=== PATIENT | female | born 1935 | race Hispanic/Latino ===

== ENCOUNTER 2017-08-10 15:31 | Inpatient (IN) | payer MEDICARE, OTHER ==
[~2017-08-10] VITALS: Ht 144.8 cm; Wt 59.4 kg
[~2017-08-10 15:31] MED LIST: AMLODIPINE BESYL5 MG PO; DILTIAZEM 24HR120 M1 PO; DIOVAN HCT 1601 EACH PO; DIOVAN160 MG PO; FLAGYL500 MG PO; MECLIZINE HCL25 MG PO; SIMVASTATIN40 MG PO; TOPROL XL25 MG PO; XARELTO20 MG PO
[2017-08-10 16:22] LABS: BASOPHILS % 0.3 % (0.0-1.0); EOSINOPHILS # (AUTO) 0.1 (0.0-0.4); EOSINOPHILS % 0.8 % (0.0-6.0); HEMATOCRIT 38.3 % (34.2-44.1); HEMOGLOBIN 13.4 g/dL (12.0-16.0); LYMPHOCYTES # (AUTO) 1.3 (1.0-3.2); LYMPHOCYTES % 21.4 % (18.0-39.1); MEAN CORPUSCULAR HEMOGLOBIN 31.5 pg (28-32); MEAN CORPUSCULAR VOLUME 90.1 fL (81-99); MONOCYTES # (AUTO) 0.7 (0.2-0.8); MONOCYTES % 11.5 % (4.4-11.3); NEUTROPHILS # (AUTO) 4.1 (2.1-6.9); NEUTROPHILS % 65.7 % (38.7-80.0); PLATELET COUNT 225 x10e3/uL (140-360); RED BLOOD COUNT 4.25 x10e6/uL (3.6-5.1); RED CELL DISTRIBUTION WIDTH 11.9 % (11.7-14.4)
[2017-08-10 16:43] LABS: ALBUMIN 3.8 g/dL (3.5-5.0); ANION GAP 16.9 mmol/L (8-16); CALCIUM 10.1 mg/dL (8.4-10.2); CREATININE, SERUM 1.3 mg/dL (0.57-1.11); POTASSIUM 3.9 mmol/L (3.5-5.1)
--- NOTE | 2017-08-10 17:04 | Diagnostic Imaging Report ---
PROCEDURE: A single AP view of the chest. COMPARISON: Chest x-ray 09/25/2013. INDICATIONS: CHEST PAIN WHEN SWALLOWING FINDINGS: Lines/tubes: None. Lungs: The lungs are well inflated and clear. There is no evidence of pneumonia or pulmonary edema. Pleura: There is no pleural effusion or pneumothorax. Heart and mediastinum: Mild cardiomegaly. Atherosclerotic calcifications in the aorta. Bones: No acute bony abnormality. IMPRESSION: 1. Mild cardiomegaly. 2. No acute cardiopulmonary disease. Dictated by: Peter Rojas M.D. on 08/10/2017 at 17:04 Electronically approved by: Peter Rojas M.D. on 08/10/2017 at 17:04
[2017-08-10 17:33] LABS: CLARITY,URINE SL CLOUDY (CLEAR); COLOR,URINE YELLOW (YELLOW); LEUKOCYTE ESTERASE ,URINE NEGATIVE (NEGATIVE); NITRITE,URINE NEGATIVE (NEGATIVE); PROTEIN,URINE DIPSTICK 1+ (NEGATIVE)
[2017-08-10 17:34] LABS: BILIRUBIN,URINE 1+ (NEGATIVE); KETONES,URINE TRACE (NEGATIVE); URINE UROBILINOGEN 1 mg/dL (0.2 - 1)
[2017-08-10 17:45] LABS: BACTERIA,URINE MODERATE /HPF; EPITHELIAL CELLS,URINE RARE /LPF; WBC,URINE (MAN) 0-5 /HPF (0-5)
[2017-08-10] MEDS ORDERED: ONDANSETRON HCL INJ 2 MG/ML VIAL IV PRN (18:45)
[2017-08-10] MEDS: SODIUM CHLORIDE 0.9% 1000ML 1,000 ML IV SCH (19:16)
[2017-08-10] MEDS: PANTOPRAZOLE 40 MG 10ML VIAL IV SCH (19:16)
--- OUTSIDE RECORDS SUMMARY | 2017-08-10 19:55 | XMS REPORT ---
Author Author [facility] Address Unknown Phone Unavailable Care Team Providers Care E Tailer Name Role Phone AMY QUEVEDO Unavailable Unavailable Problems This patient has no known problems. Allergies, Adverse Reactions, Alerts This patient has no known allergies or adverse reactions. Medications This patient has no known medications. Results Test Description Test Time Test Comments Text Results Atomic Results Result Comments CHEST SINGLE (PORTABLE) [place] [address] Patient Name: SADE HUDSON MR #: [id number] : 1935 Age/Sex: 81/F Req #: [id number] Adm Physician: Ordered by: AMY QUEVEDO MD Report #: [id number] Location: ER Room/Bed: Procedure: [id number] DX/CHEST SINGLE (PORTABLE) Exam Date: Exam Time: REPORT STATUS: Signed PROCEDURE: A single AP view of the chest. COMPARISON: Chest x-ray 09/25/2013. INDICATIONS: CHEST PAIN WHEN SWALLOWING FINDINGS: Lines/tubes: None. Lungs: The lungs are well inflated and clear. There is no evidence of pneumonia or pulmonary edema. Pleura: There is no pleural effusion or pneumothorax. Heart and mediastinum: Mild cardiomegaly. Atherosclerotic calcifications in the aorta. Bones: No acute bony abnormality. IMPRESSION: 1. Mild cardiomegaly. 2. No acute cardiopulmonary disease. Dictated by: Oscar Rojas M.D. on 08/10/2017 at 17:04 Electronically approved by: Oscar Rojas M.D. on 08/10/2017 at 17:04 Dictated By: OSCAR ROJAS MD 03 Transcribed By: ALEXANDER on 08/10/171703 COPY TO: AMY QUEVEDO MD
[2017-08-10 20:37] VITALS: BP 124/57
[2017-08-10 20:40] VITALS: BP 124/57
[2017-08-10 21:00] VITALS: BP 124/57
[2017-08-10 22:14] VITALS: BP 124/57
[2017-08-10] MEDS ORDERED: METOPROLOL TART25 MG PO (22:31)
[2017-08-10] MEDS ORDERED: PANTOPRAZOLE SO40 MG PO (22:31)
[2017-08-11] VITALS (7 sets, daily range): BP systolic 102–129; BP diastolic 50–60
[2017-08-11 06:53] LABS: CREATINE KINASE 47 IU/L (29-168)
[2017-08-11] MEDS: SODIUM CHLORIDE 0.9% 1000ML 1,000 ML IV SCH ×2 (08:05→19:51)
[2017-08-11] MEDS: PANTOPRAZOLE 40 MG 10ML VIAL IV SCH (09:00)
[2017-08-11] MEDS ORDERED: METOPROLOL TARTRATE 25 MG TAB PO SCH (09:00)
[2017-08-11] MEDS ORDERED: DILTIAZEM HCL 120 MG CAP CD PO SCH (09:00)
[2017-08-11] MEDS ORDERED: ENOXAPARIN SOD INJ 60 MG/0.6 ML SYR SC SCH (09:00)
--- NOTE | 2017-08-11 09:29 | History and Physical ---
PRIMARY CARE PHYSICIAN: Dr. House CHIEF COMPLAINT: Pain with swallowing. HISTORY OF PRESENT ILLNESS: This is a 81-year-old woman with a history of atrial fibrillation and hypertension, now developing pain with swallowing of both solids and liquids over the past 3 days. Therefore, came to the hospital for evaluation and management. Pain is located in the lower chest and upper abdomen. Occurs with swallowing of solids and liquids. Denies any shortness of breath, fever, chills, sweats. Denies any vomiting or diarrhea. PAST MEDICAL HISTORY: Atrial fibrillation, hypertension, hyperlipidemia, sigmoid diverticulosis/diverticulitis. PAST SURGICAL HISTORY: Total knee replacement, tonsillectomy. ALLERGIES: PER ELECTRONIC MEDICAL RECORD. FAMILY HISTORY/SOCIAL HISTORY: Patient is . She has 5 children. No alcohol, illicits or cigarettes. MEDICATIONS: Per electronic medical record. REVIEW OF SYSTEMS: Denies any dizziness. PHYSICAL EXAMINATION VITAL SIGNS: Reviewed. GENERAL: A tired-appearing woman resting in bed. HEENT: Anicteric. Pupils respond to light. No oral lesions. CARDIOVASCULAR: Normal S1 and S2. LUNGS: Moderate breath sounds. ABDOMEN: Soft, nontender and nondistended. EXTREMITIES: No edema or calf tenderness. NEUROLOGICAL: Alert and appropriate. Moving all extremities. SKIN: Dry. PSYCHIATRIC: Flat affect. MUSCULOSKELETAL: She has tenderness in the lower midchest and in the upper midabdomen. LABS: Reviewed. MEDICATIONS: Reviewed. ASSESSMENT AND PLAN: A 81-year-old woman with: 1. Acute esophagitis: Whether this is fungal versus viral versus stricture unclear. Gastroenterology consulted. Await endoscopy. 2. Acute kidney injury: Rehydrate and reassess. 3. Atrial fibrillation: Heart rate controlled. Restart home medications. Will use Lovenox b.i.d. instead of Xarelto in the event she needs a procedure like endoscopy. 4. Hypertension: Resume home medications. 5. Prophylaxis: Use proton pump inhibitor while on anticoagulant. 6. Disposition: Follow up gastroenterology recommendations. Follow up labs. Job#: [id number] [place]
[2017-08-11] MEDS ORDERED: PANTOPRAZOLE 40 MG 10ML VIAL IV STA (12:46)
[2017-08-11] MEDS ORDERED: PANTOPRAZOL 40MG/SOD CHL 0.9% 250 ML IV SCH (13:00)
[2017-08-11] MEDS ORDERED: PANTOPRAZOL 40MG/SOD CHL 0.9% 50 ML IV SCH (13:00)
[2017-08-11] MEDS ORDERED: DONNATAL/LIDOCAINE/MAALOX 30 ML SUSP PO ONE (13:00)
--- NOTE | 2017-08-11 13:45 | Operative Report ---
DATE OF PROCEDURE: August 11, 2017 REFERRING PHYSICIAN: Dr. Diana Cook. PROCEDURE PERFORMED: Esophagogastroduodenoscopy with biopsies and esophageal dilatation. INDICATIONS FOR ESOPHAGOGASTRODUODENOSCOPY: Dysphagia, odynophagia. MEDICATION: Patient was done under MAC. Please see anesthesiologist's note. PROCEDURE: With the patient in the left lateral decubitus position, the flexible fiberoptic Olympus gastroscope was introduced into the esophagus under direct visualization without any difficulty. There was a large esophageal ulcer noted in the distal esophagus starting at approximately 30 cm from the incisors to 35 cm. There was no active bleeding or stigmata of recent hemorrhage. The scope was then advanced with ease into the stomach, traversing a small sliding hiatal hernia. Mucosa overlying the antrum and the body revealed some patchy erythema and low-grade edema, and biopsies were obtained and sent to stain for H. pylori. Pylorus appeared to be of normal contour and shape, was intubated with ease, and the scope was advanced all the way to the 2nd portion of the duodenum. The scope was then withdrawn slowly. Mucosa overlying the proximal 2nd portion and the duodenal bulb appeared to be within normal limits. The scope was then withdrawn back into the stomach and retroflexed, and the mucosa overlying the fundus and the cardia appeared to be within normal limits. The scope was then straightened out. The stomach was decompressed. The scope was subsequently withdrawn. Esophagus was then dilated to size 48-English Bwoen. Patient tolerated the procedure well. IMPRESSION: 1. Large distal esophageal ulcer. 2. Esophagus dilated to size 48-English Bowen. 3. Small sliding hiatal hernia. 4. Gastritis biopsied. Biopsies sent to stain for H. pylori. PLAN: Follow up histology. Augment current PPI therapy. Start GI cocktail. Job#: [id number] EV cc:DIANA COOK MD
[2017-08-11] MEDS ORDERED: DONNATAL/LIDOCAINE/MAALOX 30 ML SUSP PO SCH (15:00)
[2017-08-11] MEDS ORDERED: LIDOCAINE HCL 2% LOCAL INJ 5 ML SDV VIAL INJ ONE (15:24)
[2017-08-11] MEDS ORDERED: METOCLOPRAMIDE HCL 10 MG/2ML VIAL ONE (15:24)
[2017-08-11] MEDS ORDERED: PROPOFOL IV EMULSION 10 MG/ML 20 ML VIAL ONE (15:24)
[2017-08-11] MEDS ORDERED: ONDANSETRON HCL INJ 2 MG/ML VIAL IV PRN (15:30)
[2017-08-11] MEDS: PANTOPRAZOL 40MG/SOD CHL 0.9% 50 ML IV SCH ×2 (15:41→21:33)
[2017-08-11] MEDS: METOPROLOL TARTRATE 25 MG TAB PO SCH (17:23)
[2017-08-11] MEDS ORDERED: SIMVASTATIN 20 MG TAB PO SCH (21:00)
[2017-08-11] MEDS ORDERED: SIMVASTATIN 40 MG TAB PO SCH (21:00)
[2017-08-11] MEDS: SIMVASTATIN 20 MG TAB PO SCH (21:33)
[2017-08-11] MEDS: DONNATAL/LIDOCAINE/MAALOX 30 ML SUSP PO SCH (21:33)
[2017-08-11] MEDS: ENOXAPARIN SOD INJ 60 MG/0.6 ML SYR SC SCH (21:33)
[2017-08-12] VITALS (7 sets, daily range): BP systolic 101–119; BP diastolic 50–58
[2017-08-12] MEDS: PANTOPRAZOL 40MG/SOD CHL 0.9% 50 ML IV SCH ×5 (01:58→23:08)
[2017-08-12] MEDS: SODIUM CHLORIDE 0.9% 1000ML 1,000 ML IV SCH ×2 (03:47→18:42)
[2017-08-12] MEDS: DILTIAZEM HCL 120 MG CAP CD PO SCH (09:23)
[2017-08-12] MEDS: DONNATAL/LIDOCAINE/MAALOX 30 ML SUSP PO SCH ×3 (09:23→20:33)
[2017-08-12] MEDS: METOPROLOL TARTRATE 25 MG TAB PO SCH ×2 (09:23→16:45)
[2017-08-12] MEDS: ENOXAPARIN SOD INJ 60 MG/0.6 ML SYR SC SCH ×2 (09:23→20:33)
--- NOTE | 2017-08-12 15:50 | Progress Note ---
DATE: August 12, 2017 INTERNAL MEDICINE PROGRESS NOTE TIME: 13:45 OVERNIGHT: No acute events. REVIEW OF SYSTEMS: Patient denies any chest pain, shortness of breath, dizziness, vomiting, or diarrhea. Continues with slight day complaint of minor abdominal pain upon consuming p.o. intake. PHYSICAL EXAMINATION VITAL SIGNS: Temperature 97.3, pulse 83, respiratory rate 18, BP is 115/58, and pulse ox 93% on room air. GENERAL: This is a tired-appearing elderly woman, lying supine in bed. HEENT: Atraumatic. Oral mucosa moist and intact. Nares patent. PERRLA. CARDIOVASCULAR: S1 and S2 auscultated with irregular rate noted. LUNGS: Bilateral breath sounds are clear to all gama with good aeration. EXTREMITIES: No calf or calf tenderness. Positive DP pulses. NEUROLOGIC: A and O x2-3 with family interpretation at bedside. SKIN: Dry. PSYCHIATRIC: Flat affect. MUSCULOSKELETAL: Palpable tenderness in her lower and mid-chest, to light palpation in upper and mid-abdomen. LABS: Prior values from 08/10/2017 reviewed. MEDICATIONS: Patient is on Protonix IV, metoprolol 25 mg p.o. b.i.d., Lovenox 50 mg q. 12h. subcu, GI cocktail p.o. t.i.d., diltiazem HCL 120 mg p.o. q.d., Zocor 20 mg p.o. at bedtime, IV normal saline, and p.r.n. Zofran. ASSESSMENT AND PLAN: This is a 81-year-old woman with; 1. Acute esophagitis: Gastrointestinal consult notes and esophagogastroduodenoscopy procedure notes reviewed. Biopsy obtained per gastrointestinal note, results pending. Dilation noted. 2. Acute kidney injury: Rehydrate and reassess with followup values in the morning. Prior GFR was 40. 3. Atrial fibrillation, rate controlled on home medicines, currently on Lovenox. On discharge, we will change to Xarelto if INR is less than 2. 4. Hypertension, controlled with home meds. 5. Prophylaxis, proton pump inhibitor while on Lovenox. 6. Disposition: Follow up gastrointestinal recommendations, obtain renal function lab and coagulation in the morning. Patient continues to follow a soft gastrointestinal diet with minimal discomfort. Dictated by: Nitin Trevino NP Job#: [id number] [place]
[2017-08-12] MEDS: SIMVASTATIN 20 MG TAB PO SCH (20:33)
[2017-08-13] VITALS: BP 128/56
[2017-08-13 00:22] VITALS: BP 128/56
[2017-08-13 04:00] VITALS: BP 117/60
[2017-08-13] MEDS: PANTOPRAZOL 40MG/SOD CHL 0.9% 50 ML IV SCH ×3 (04:21→15:43)
[2017-08-13 06:46] LABS: INR 1.25; PROTHROMBIN TIME 14.8 seconds (11.9-14.5)
[2017-08-13 06:54] LABS: ALANINE AMINOTRANSFERASE 16 IU/L (0-55); ALKALINE PHOSPHATASE 75 IU/L (40-150); ANION GAP 10.3 mmol/L (8-16); BLOOD UREA NITROGEN 11 mg/dL (7-26); BUN/CREATININE RATIO 16 (6-25); CARBON DIOXIDE 27 mmol/L (22-29); CHLORIDE 106 mmol/L (98-107); EST GLOMERULAR FILTRATION RATE > 60 ML/MIN (60-); GLUCOSE 100 mg/dL (74-118); POTASSIUM 3.3 mmol/L (3.5-5.1); SODIUM 140 mmol/L (136-145)
[2017-08-13 08:13] VITALS: BP 112/61
[2017-08-13 08:58] VITALS: BP 112/61
[2017-08-13] MEDS: ENOXAPARIN SOD INJ 60 MG/0.6 ML SYR SC SCH (08:58)
[2017-08-13] MEDS: DONNATAL/LIDOCAINE/MAALOX 30 ML SUSP PO SCH ×2 (08:58→15:43)
[2017-08-13] MEDS: METOPROLOL TARTRATE 25 MG TAB PO SCH ×2 (08:58→17:05)
[2017-08-13] MEDS: DILTIAZEM HCL 120 MG CAP CD PO SCH (08:58)
[2017-08-13] MEDS ORDERED: POTASSIUM CHLORIDE 20MEQ/100ML 100 ML IV SCH (10:30)
[2017-08-13 12:27] VITALS: BP 114/62
--- NOTE | 2017-08-13 15:33 | Progress Note ---
DATE: August 13, 2017 MEDICINE PROGRESS NOTE TIME OF SERVICE: 10:30 a.m. SUBJECTIVE: Overnight, no acute events. REVIEW OF SYSTEMS: Patient denies any chest pain, shortness of breath, nausea, vomiting, diarrhea, constipation or dizziness. Patient reports only minor pain upon consumption of soft GI diet. OBJECTIVE VITAL SIGNS: Temperature this a.m. is 98.3, pulse 82, respirations 18, BP 112/64, pulse ox 97% on room air. GENERAL APPEARANCE: This is a tired-appearing elderly woman resting supine in bed. HEENT: Oral mucosa moist and intact. Nares patent. PERRLA. Normocephalic. CARDIOVASCULAR: S1 and S2 auscultated with irregular rate appreciated. LUNGS: Bilateral breath sounds are CTA with good aeration. EXTREMITIES: Positive PT/DP pulses. No calf pain, clubbing or edema. NEUROLOGIC: Alert and oriented x3. Family at bedside providing interpretation. SKIN: Dry. PSYCHIATRIC: Flat affect. MUSCULOSKELETAL: Minimal tenderness in the lower and mid chest to deeper palpation than day prior, much improved. LABS: INR 1.5. Sodium 140, potassium 3.3, chloride 106, CO2 27, gap improved at 10.3, BUN is 11 and GFR is greater than 60 this a.m. with lowered protein and globulin noted. MEDICATIONS 1. Metoprolol 25 mg p.o. b.i.d. 2. Lovenox 60 mg q.12 h. subcutaneous. 3. GI cocktail 10 mL p.o. t.i.d. 4. Cardizem 120 mg p.o. daily. 5. Protonix IV drip. 6. Zocor 20 mg p.o. nightly. 7. Normal saline at 75 mL an hour. 8. PRN Zofran. ASSESSMENT AND PLAN: This is a 81-year-old woman with 1. Acute esophagitis. GI consult notes and EGD procedure notes noted from the . Biopsy results still pending. Patient reports good results following dilation. 2. Acute kidney injury. GFR this a.m. is greater than 60. 3. Atrial fibrillation rate controlled on home meds. AC currently Lovenox. Upon discharge we will change her to Xarelto as INR is less than 2 this a.m. at 1.25. 4. Hypertension. Home medication controlled. 5. Prophylaxis. PPI with Lovenox. 6. Disposition. Continuing to follow GI recommendations. The patient was able to tolerate advancement of diet this a.m. to GI soft with minimal complaints. Plan of care discussed with nursing staff. GI contact pending concerning ability to discharge and recommendations concerning H. pylori eradication as biopsy is still pending. However, as recommended and approved by GI consult, we will discharge the patient on the clarithromycin-based triple-regimen therapy for 14 days consisting of metronidazole 500 mg p.o. t.i.d., Protonix 40 mg p.o. b.i.d., and clarithromycin 500 mg p.o. b.i.d., all for 14 days. Will replace potassium this day via IV route to avoid GI upset. Dictated by: Nitin Trevino NP Job#: [id number] EV
--- NOTE | 2017-08-13 17:19 | Discharge Summary ---
PRINCIPAL DIAGNOSIS 1. Acute esophagitis. 2. Acute kidney injury. 3. Atrial fibrillation. 4. Hypertension. SECONDARY DIAGNOSIS 1. Atrial fibrillation. 2. Hypertension. 3. Hyperlipidemia. 4. Sigmoid diverticulosis/diverticulitis. 5. Total knee replacement. 6. Tonsillectomy. CHIEF COMPLAINT: Pain with swallowing of both solids and liquids x3 days. HISTORY OF PRESENT ILLNESS: A 81-year-old woman with a history of atrial fibrillation and hypertension developed pain with swallowing of both solids and liquids over a 3-day period. Pain was located in the lower chest and upper abdomen and occurred only with swallowing of solids and liquids. Patient presented to emergency care for treatment on the . HOSPITAL COURSE: Upon admission to the emergency room, internal medicine team assembled GI consult and the patient was taken for EGD dilation on the a.m. of August 11. During this procedure, dilation and biopsy did occur and visualization was noted. The following day, the patient was advanced to a clear-liquid diet and continued on GI cocktail and PPI drip. On the , the patient was without any incidence of fever, continued to tolerate advancing consistency of diet which was now GI soft. Vital signs remained stable. DISCHARGE MEDICATIONS: The patient is to resume home medications which include diltiazem 24-hour extended release cap 120 mg p.o. daily, meclizine 25 mg p.o. q.8 h. as needed, metoprolol 25 mg p.o. b.i.d., Flagyl 500 mg tab 1 p.o. t.i.d., Protonix 40 mg tablet p.o. daily, Xarelto 20 mg tablet once daily, simvastatin 80 mg p.o. at nightly, and valsartan 160 mg p.o. daily. FOLLOWUP: The patient was instructed to follow up with gastroenterology, Dr. David Walker, within 5 to 7 days. Additionally, the patient was instructed to follow up with internal medicine and primary care attending doctor, Dr. House, within 5 to 7 days. CONDITION ON DISCHARGE: Improved and stable. Dictated by: Nitin Trevino NP DIANA COOK MD Job#: [id number] EV
== END 2017-08-13 17:07 | disposition home or self-care (01) | DRG 381 ==
LOC: ER 15:31 → MED/SURG 18:45 → UNDODISIN 08-11 14:55
PROVIDERS: ADMIT Internal Medicine; ATTEND Internal Medicine
PROC: 0D758ZZ Dilation of Esophagus, Via Natural or Artificial Opening Endoscopic (ICD-10-PCS; 2017-08-11)
PROC: 0DB78ZX Excision of Stomach, Pylorus, Via Natural or Artificial Opening Endoscopic, Diagnostic (ICD-10-PCS; principal; 2017-08-11 12:07)
PROC: 0DB68ZX Excision of Stomach, Via Natural or Artificial Opening Endoscopic, Diagnostic (ICD-10-PCS; 2017-08-11 12:07)
DX: K22.10 Ulcer of esophagus without bleeding (principal); N17.9 Acute kidney failure, unspecified; K57.92 Diverticulitis of intestine, part unspecified, without perforation or abscess without bleeding; K20.9 Esophagitis, unspecified; I48.91 Unspecified atrial fibrillation; K57.30 Diverticulosis of large intestine without perforation or abscess without bleeding; I10 Essential (primary) hypertension
CPT/HCPCS: 36415; 43239; 43450; 71045; 80053; 81001; 82550; 82553; 84484; 85025; 85610; 88305; 88312; 93005; 99284; J1650; J2001; J2765; J3480; J7030

== ENCOUNTER 2023-11-02 00:43 | Emergency (ER) | payer MEDICARE, OTHER ==
[~2023-11-02] VITALS: Ht 144.8 cm; Wt 59.4 kg
[~2023-11-02 00:43] MED LIST changes: +METOPROLOL TART25 MG PO; +PANTOPRAZOLE SO40 MG PO
[2023-11-02 01:00] VITALS: PULSE 95; RESP 20; TEMP 98.4; O2SAT 99
[2023-11-02 01:47] LABS: STREPTOCOCCUS GRP A ANTIGEN NEGATIVE (NEGATIVE)
[2023-11-02 01:53] LABS: INFLUENZAE A&B ANTIGEN (RAPID) NEGATIVE (NEGATIVE)
[2023-11-02 01:54] LABS: RESPIRATORY SYNC. VIRUS NEGATIVE (NEGATIVE)
[2023-11-02] MEDS ORDERED: VENTOLIN HFA18 GM INH (02:30)
[2023-11-02] MEDS ORDERED: PREDNISONE20 MG PO (02:30)
== END 2023-11-02 02:41 | disposition home or self-care (01) ==
LOC: ER 00:52
DX: J06.9 Acute upper respiratory infection, unspecified (principal); I10 Essential (primary) hypertension; I48.91 Unspecified atrial fibrillation; Z79.01 Long term (current) use of anticoagulants; Z79.899 Other long term (current) drug therapy; Z11.52 Encounter for screening for COVID-19
CPT/HCPCS: 71046; 83518; 87070; 87400; 87420; 99284; U0002

== ENCOUNTER 2024-05-30 14:45 | Outpatient (RCR) | payer MEDICARE, OTHER ==
[~2024-05-30 14:45] MED LIST changes: +PREDNISONE20 MG PO; +VENTOLIN HFA18 GM INH
== END 2024-05-31 ==
LOC: PT 14:45
PROVIDERS: ATTEND Family Medicine Adult Medicine
DX: M79.605 Pain in left leg (principal); M79.604 Pain in right leg; M79.602 Pain in left arm; M79.601 Pain in right arm; R53.1 Weakness; Z96.651 Presence of right artificial knee joint

== ENCOUNTER 2024-06-27 14:55 | Outpatient (RCR) | payer MEDICARE, OTHER | END 2024-06-28 | LOC: PT 14:55 | PROVIDERS: ATTEND Family Medicine Adult Medicine | DX: M17.0 Bilateral primary osteoarthritis of knee (principal); M25.512 Pain in left shoulder ==

== ENCOUNTER 2024-07-04 15:00 | Outpatient (RCR) | payer MEDICARE, OTHER | END 2024-07-29 | LOC: PT 15:00 | PROVIDERS: ATTEND Physician Assistant | DX: M17.0 Bilateral primary osteoarthritis of knee (principal); M25.512 Pain in left shoulder ==

== ENCOUNTER 2024-08-26 20:19 | Inpatient (IN) | payer MEDICARE ==
[~2024-08-26] VITALS: Ht 144.8 cm; Wt 42.4 kg
[2024-08-26 21:22] VITALS: TEMP 98.4
[2024-08-26 21:57] LABS: BASOPHILS % 0.5 % (0.0-1.0); EOSINOPHILS # (AUTO) 0.1 (0.0-0.4); EOSINOPHILS % 1.9 % (0.0-6.0); HEMOGLOBIN 13.2 g/dL (12.0-16.0); LYMPHOCYTES # (AUTO) 1.6 (1.0-3.2); LYMPHOCYTES % 27.4 % (18.0-39.1); MEAN CORPUSCULAR HEMOGLOBIN 30.7 pg (28-32); MONOCYTES # (AUTO) 0.7 (0.2-0.8); MONOCYTES % 12.5 % (4.4-11.3); NEUTROPHILS # (AUTO) 3.4 (2.1-6.9); NEUTROPHILS % 57.4 % (38.7-80.0); PLATELET COUNT 217 x10e3/uL (140-360); RED CELL DISTRIBUTION WIDTH 12.3 % (11.7-14.4); WHITE BLOOD COUNT 5.85 x10e3/uL (4.8-10.8)
[2024-08-26] MEDS: METOPROLOL TARTRATE INJ 1 MG/ML VIAL IV STA (22:13)
[2024-08-26] MEDS: DIGOXIN INJ 0.25 MG/ML 2 ML AMP IV STA (22:13)
[2024-08-26] MEDS: DILTIAZEM HCL 5 MG/ML 5 ML VIAL IV STA (22:14)
[2024-08-26 22:20] LABS: ALBUMIN 3.7 g/dL (3.5-5.0); ALBUMIN/GLOBULIN RATIO 0.9 (0.8-2.0); ANION GAP 18.2 mmol/L (8-16); BILIRUBIN,TOTAL 0.4 mg/dL (0.2-1.2); CREATININE, SERUM 0.78 mg/dL (0.57-1.11); POTASSIUM 4.2 mmol/L (3.5-5.1); TOTAL PROTEIN 7.8 g/dL (6.5-8.1)
[2024-08-26 22:27] LABS: TROPONIN I 0.009 ng/mL (0-0.300)
[2024-08-26 22:33] VITALS: RESP 16
[2024-08-26] MEDS: ASPIRIN 81 MG CHEW TAB PO ONE (22:50)
[2024-08-27] VITALS (11 sets, daily range): BP systolic 128–154; BP diastolic 49–103; PULSE 77–94; RESP 18–20; TEMP 97.3–98.3; O2SAT 97–100
[2024-08-27] MEDS ORDERED: IOPAMIDOL 370 MG/ML 100 ML INFUS..BTL INJ ONE (01:04)
[2024-08-27] MEDS ORDERED: ONDANSETRON HCL INJ 2MG/ML 2ML 2 MG/ML VIAL IV PRN (01:15)
[2024-08-27] MEDS ORDERED: Morphine 2mg Syringe 2 MG/ML SYR IV PRN (01:15)
[2024-08-27] MEDS ORDERED: SODIUM CHLORIDE FLUSH 10 ML SYR INJ PRN (01:15)
[2024-08-27] MEDS ORDERED: VITAMIN D3125 MCG/1 PO (04:01)
[2024-08-27] MEDS ORDERED: ZYRTEC10 M3 PO (04:01)
[2024-08-27] MEDS ORDERED: FAMOTIDINE20 MG PO (04:01)
[2024-08-27] MEDS ORDERED: IBANDRONATE SO150 MG (04:01)
[2024-08-27] MEDS ORDERED: CALCIUM CARBON500 MG PO (04:01)
[2024-08-27] MEDS ORDERED: OXYBUTYNIN CHLOR5 MG PO (04:01)
[2024-08-27] MEDS ORDERED: LORATADINE 10 MG TAB PO PRN ×2 (09:30→12:15)
[2024-08-27] MEDS ORDERED: ALBUTEROL/IPRATROPIUM 3 ML NEB NEB PRN (09:30)
[2024-08-27 11:23] LABS: TROPONIN I 0.008 ng/mL (0-0.300)
[2024-08-27] MEDS: Doxycycline IV 100 MG in SODIUM CHLORIDE 0.9% 100 ML IV SCH (11:34)
[2024-08-27] MEDS: GUAIFENESIN/DEXTROMETHORPHAN LIQD 5 ML UDC NG PRN (11:35)
[2024-08-27] MEDS: SODIUM CHLORIDE 0.9% 250ML 250 ML ONE (11:37)
[2024-08-27] MEDS: DILTIAZEM HCL ER 120 MG CAP PO SCH (12:42)
[2024-08-27] MEDS: VALSARTAN 160 MG TAB PO SCH (12:42)
[2024-08-27] MEDS ORDERED: SIMVASTATIN40 MG PO (12:45)
[2024-08-27] MEDS: BENZONATATE 100 MG CAP PO SCH (16:24)
[2024-08-27] MEDS: METOPROLOL TARTRATE 25 MG TAB PO SCH (16:25)
[2024-08-27] MEDS: ENOXAPARIN SOD INJ 40 MG/0.4 ML SYR SC SCH (16:28)
[2024-08-27] MEDS ORDERED: RIVAROXABAN 15 MG TABLET PO SCH (17:00)
[2024-08-27] MEDS ORDERED: ACETAMINOPHEN 325 MG TAB PO PRN (19:45)
[2024-08-28] VITALS (9 sets, daily range): BP systolic 125–145; BP diastolic 56–73; PULSE 63–94; RESP 17–19; TEMP 97.7–98.4; O2SAT 96–99
[2024-08-28 06:45] LABS: BASOPHILS % 0.8 % (0.0-1.0); EOSINOPHILS # (AUTO) 0.1 (0.0-0.4); EOSINOPHILS % 1.9 % (0.0-6.0); HEMATOCRIT 37.9 % (34.2-44.1); HEMOGLOBIN 12.2 g/dL (12.0-16.0); LYMPHOCYTES # (AUTO) 1.3 (1.0-3.2); LYMPHOCYTES % 27.8 % (18.0-39.1); MEAN CORPUSCULAR HEMOGLOBIN 30.9 pg (28-32); MEAN CORPUSCULAR HGB CONC 32.2 g/dL (31-35); MEAN CORPUSCULAR VOLUME 95.9 fL (81-99); MONOCYTES # (AUTO) 0.5 (0.2-0.8); MONOCYTES % 11.3 % (4.4-11.3); NEUTROPHILS # (AUTO) 2.8 (2.1-6.9); NEUTROPHILS % 57.8 % (38.7-80.0); PLATELET COUNT 205 x10e3/uL (140-360); RED BLOOD COUNT 3.95 x10e6/uL (3.6-5.1); RED CELL DISTRIBUTION WIDTH 12.1 % (11.7-14.4); WHITE BLOOD COUNT 4.79 x10e3/uL (4.8-10.8)
[2024-08-28 07:20] LABS: ALBUMIN 3.2 g/dL (3.5-5.0); ALBUMIN/GLOBULIN RATIO 0.9 (0.8-2.0); ANION GAP 12.4 mmol/L (8-16); BILIRUBIN,TOTAL 0.4 mg/dL (0.2-1.2); CALCIUM 9.3 mg/dL (8.4-10.2); CREATININE, SERUM 0.75 mg/dL (0.57-1.11); POTASSIUM 4.4 mmol/L (3.5-5.1); TOTAL PROTEIN 6.6 g/dL (6.5-8.1)
[2024-08-28 07:57] LABS: TROPONIN I 0.011 ng/mL (0-0.300)
[2024-08-28] MEDS: METOPROLOL TARTRATE 25 MG TAB PO SCH (08:58)
[2024-08-28] MEDS: FAMOTIDINE 20 MG TAB PO SCH (08:59)
[2024-08-28] MEDS: PANTOPRAZOLE SOD 40 MG TABEC PO SCH (08:59)
[2024-08-28] MEDS: FUROSEMIDE INJ 10 MG/ML 4 ML VIAL IV SCH (09:00)
[2024-08-29] VITALS: BP 126/72; PULSE 69; RESP 17; TEMP 97.6; O2SAT 97
[2024-08-29 04:00] VITALS: BP 118/51; PULSE 83; RESP 17; TEMP 98; O2SAT 98
[2024-08-29 09:28] VITALS: BP 139/71; PULSE 82; RESP 18; TEMP 97.5; O2SAT 98
[2024-08-29 09:30] VITALS: PULSE 81; RESP 18; O2SAT 96
[2024-08-29 09:34] VITALS: BP 139/71; PULSE 82; RESP 18; TEMP 97.5; O2SAT 98
[2024-08-29] MEDS ORDERED: LORATADINE10 MG PO (10:00)
[2024-08-29] MEDS ORDERED: LOPRESSOR25 MG PO (10:00)
[2024-08-29] MEDS ORDERED: BENZONATATE100 MG PO (10:00)
[2024-08-29] MEDS ORDERED: FUROSEMIDE20 MG PO (10:00)
[2024-08-29] MEDS ORDERED: DOXYCYCLINE HY100 MG PO (10:02)
[2024-08-29] MEDS ORDERED: ONDANSETRON HCL 4 MG ORAL DISINTEGRATING TAB PO PRN (10:30)
[2024-08-29] MEDS ORDERED: DOXYCYCLINE HYCLATE TABLET 100 MG TAB PO SCH (21:00)
== END 2024-08-29 11:30 | disposition home or self-care (01) | DRG 291 ==
LOC: ER 20:55 → ERHOLD 08-27 01:16 → MED/SURG3 08-27 02:56
PROVIDERS: ADMIT Internal Medicine; ATTEND Internal Medicine
DX: I11.0 Hypertensive heart disease with heart failure (principal); I50.33 Acute on chronic diastolic (congestive) heart failure; J20.9 Acute bronchitis, unspecified; I48.0 Paroxysmal atrial fibrillation; Z79.01 Long term (current) use of anticoagulants; E78.5 Hyperlipidemia, unspecified; R00.0 Tachycardia, unspecified; R59.0 Localized enlarged lymph nodes; Z79.52 Long term (current) use of systemic steroids; Z79.899 Other long term (current) drug therapy
CPT/HCPCS: 36415; 71260; 80053; 82550; 83690; 83880; 84484; 85025; 93005; 93306; 94799; 99284; J1160; J1650; J1938; J2470; J7050; Q9967